=== PATIENT | female | born 1985 | race Caucasian/White ===

== ENCOUNTER 2020-06-14 08:04 | Day surgery (SDC) | payer BC ==
[~2020-06-14 08:04] MED LIST: Lactated Ringers 1,000 ML IV SCH; Lidocaine 1%/Sod Bicarbonate in NS 8.4% 1 ML Syringe IDERM PRN; Sodium Chloride 0.9% 10 ML Syringe FLUSH PRN
--- NOTE | 2020-06-14 08:17 | PCM.PREANE ---
Preanesthetic Assessment - Procedure Proposed Procedure: Right Knee Manipulation under Anesthesia with Right knee steroid injection. - Anesthesia/Transfusion/Family Hx Anesthesia History: Prior Anesthesia Without Reaction Family History of Anesthesia Reaction: No Transfusion History: No Prior Transfusion(s) Intubation History: Unknown - Review of Systems General: No Symptoms Pulmonary: No Symptoms (asthma: last used inhaler greater than 2 months ago/former smoker: 1/2 ppd times 16 years (quit 2012) ETOH:rarely) Cardiovascular: Palpitations (anxiety) Gastrointestinal: No Symptoms Neurological: No Symptoms (polycystic ovarian disease), Headache (migraines related to menstrual cycle.) Other: Reports: Thyroid Problems (hypothyroid), Depression, Anxiety - Physical Assessment NPO Status Date: 06/13/20 NPO Status Time: 21:00 Vital Signs: HR:77 Sat:99% Temp:97.5 Resp:16 B/P:125/81 Height: 1.47 m Weight: 59 kg ASA Class: 2 Mental Status: Alert & Oriented x3 Airway Class: Mallampati = 2 Dentition: Reports: Normal Dentition, Caries Thyro-Mental Finger Breadths: 3 Mouth Opening Finger Breadths: 3 ROM/Head Extension: Full Lungs: Clear to Auscultation, Normal Respiratory Effort Cardiovascular: Regular Rate, Regular Rhythm, No Murmurs - Lab Values: Laboratory Last Values Urine HCG, Qual Negative (NEGATIVE) 06/14/20 07:58 MRSA (PCR) Negative 06/07/20 12:18 All labs reviewed and noted and within acceptable ranges to proceed with scheduled procedure. - Allergies Allergies/Adverse Reactions: Allergies Allergy/AdvReac Type Severity Reaction Status Date / Time acetaminophen [From Percocet] AdvReac Hallucinati Verified 06/11/20 12:30 ons oxycodone HCl [From Percocet] AdvReac Hallucinati Verified 06/11/20 12:30 ons - Anesthesia Plan Pre-Op Medication Ordered: Beta Terry Beta Terry: Propranolol Med Last Dose Date: 06/13/20 Med Last Dose Time: 07:00 - Acknowledgements Anesthesia Type Planned: MAC Pt an Appropriate Candidate for the Planned Anesthesia: Yes Alternatives and Risks of Anesthesia Discussed w Pt/Guardian: Yes Pt/Guardian Understands and Agrees with Anesthesia Plan: Yes PreAnesthesia Questionnaire HEENT History: Reports: None Other HEENT History: wears eyeglasses Cardiovascular History: Reports: None Respiratory History: Reports: Asthma Gastrointestinal History: Reports: None Genitourinary History: Reports: None QA REVIEWER History: Reports: Other (See Below) Other OB/BYN History: spontaneous , polycystic ovaries Musculoskeletal History: Reports: None Neurological History: Reports: Migraines Psychiatric History: Reports: Anxiety, Depression, Other (See Below) Other Psychiatric History: insomnia Endocrine/Metabolic History: Reports: None Hematologic History: Reports: None Immunologic History: Reports: None Oncologic (Cancer) History: Reports: None Dermatologic History: Reports: Other (See Below) Other Dermatologic History: skin rash - Infectious Disease History Infectious Disease History: Reports: None - Past Surgical History Head Surgeries/Procedures: Reports: None HEENT Surgical History: Reports: LASIK, Tonsillectomy Cardiovascular Surgical History: Reports: None Respiratory Surgical History: Reports: None GI Surgical History: Reports: None Female Surgical History: Reports: None Male Surgical History: Reports: None Endocrine Surgical History: Reports: None Neurological Surgical History: Reports: None Musculoskeletal Surgical History: Reports: Other (See Below) Other Musculoskeletal Surgeries/Procedures:: right knee video arthroscopy, right knee hardware removal, right knee surgery x 2, wrist fx x 2 Oncologic Surgical History: Reports: None Dermatological Surgical History: Reports: None - SUBSTANCE USE Tobacco Use Status *Q: Former Tobacco User Days Per Week of Alcohol Use: 1 Number of Drinks Per Day: 2 Total Drinks Per Week: 2 Recreational Drug Use History: No - HOME MEDS Home Medications: Home Meds Albuterol Sulfate [Albuterol Sulfate HFA] 1 - 2 puff INH Q4H PRN 06/11/20 [History] Fish Oil/[place]-3 Fatty Acids [Fish Oil 1,000 MG] 1 gm PO DAILY 06/11/20 [History] Methylphenidate HCl [Methylphenidate ER] 54 mg PO DAILY 06/11/20 [History] Montelukast [Singulair] 10 mg PO DAILY 06/11/20 [History] Multivitamin 1 tab PO DAILY 06/11/20 [History] buPROPion HCL [Wellbutrin Xl] 300 mg PO DAILY 06/11/20 [History] lamoTRIgine [Lamictal] 50 mg PO DAILY 06/11/20 [History] lamoTRIgine [Lamictal] 100 mg PO DAILY 06/11/20 [History] traZODone HCl [Trazodone HCl] 50 - 100 mg PO BEDTIME 06/11/20 [History] Acetaminophen/HYDROcodone [[place] 325-5 MG] 1 - 2 tab PO Q6H PRN #10 tablet 06/14/20 [Rx] Aspirin [Aspirin EC] 325 mg PO DAILY #30 tablet. 06/14/20 [Rx] - CURRENT (IN HOUSE) MEDS Current Meds: Current Medications Lactated Ringer's (Ringers, Lactated) 1,000 mls @ 125 mls/hr IV ASDIRECTED MARCELO Stop: 06/14/20 23:00 Lidocaine/Sodium Bicarbonate (Lidocaine 1%/Sod Bicarbonate In Ns 8.4% 1 Ml Syringe) 0.25 ml IDERM ONETIME PRN PRN Reason: Prior to IV Start Stop: 06/14/20 18:00 Sodium Chloride (Sodium Chloride 0.9% 10 Ml Syringe) 10 ml FLUSH ASDIRECTED PRN PRN Reason: Keep Vein Open Stop: 06/14/20 18:00
[2020-06-14] MEDS ORDERED: Propofol 200 MG/20 ML SDV ONE (09:13)
[2020-06-14] MEDS ORDERED: Ondansetron 4 MG/2 ML SDV ONE (09:13)
[2020-06-14] MEDS ORDERED: Lidocaine 1% 4 ML ONE (09:14)
[2020-06-14] MEDS ORDERED: fentaNYL 100 MCG/2 ML SDV ONE (09:14)
[2020-06-14] MEDS ORDERED: Midazolam 1 MG/ML 2 ML SDV ONE (09:14)
[2020-06-14] MEDS ORDERED: Triamcinolone Acetonide 40 MG/ML 1 ML SDV ONE (09:22)
[2020-06-14] MEDS ORDERED: Bupivacaine 0.25% 10 ML SDV ONE (09:22)
--- NOTE | 2020-06-14 09:51 | PCM48HPAN ---
Post Anesthesia Note - EVALUATION WITHIN 48HRS OF ANESTHETIC Vital Signs in Normal Range: Yes Patient Participated in Evaluation: Yes Respiratory Function Stable: Yes Airway Patent: Yes Cardiovascular Function Stable: Yes Hydration Status Stable: Yes Pain Control Satisfactory: Yes Nausea and Vomiting Control Satisfactory: Yes Mental Status Recovered: Yes Vital Signs: Last Vital Signs Temp 36.4 C 06/14/20 08:51 Pulse 77 06/14/20 08:51 Resp 16 06/14/20 08:51 BP 125/81 06/14/20 08:51 Pulse Ox 99 06/14/20 08:51 - COMMENTS/OBSERVATIONS Free Text/Narrative:: no anesthesia complications noted
[2020-06-14 12:32] VITALS: BP 118/74; PULSE 66
--- NOTE | 2020-06-14 14:05 | PCM.OPNOTE ---
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
--- NOTE | 2020-06-21 07:38 | OR ---
DATE OF OPERATION: 06/14/2020 SURGEON: Jerome Jones MD OPERATION PERFORMED: 1. Right knee manipulation under anesthesia. 2. Right knee intraarticular injection. PREOPERATIVE DIAGNOSIS: Right knee arthrofibrosis and right knee arthritis. POSTOPERATIVE DIAGNOSIS: Right knee arthrofibrosis and right knee arthritis. ANESTHESIA: MAC. ANESTHESIA PROVIDER: Anand Ruggiero CRNA RETINAL ANGIOGRAPHER: Jane London PAC ESTIMATED BLOOD LOSS: Not applicable. COMPLICATIONS: None. CONDITION: Stable. DESCRIPTION OF PROCEDURE: The patient was identified in the preoperative holding area. Proper site was marked and identified by surgeon. The patient was taken back to the operating theater where after adequate anesthesia, a time-out was performed. At this time, pre manipulation motion measured 125 degrees to the right knee compared to 140 on the contralateral side. At this time, manipulation was done and I was able to get the patient to 140 degrees compared to the contralateral side. The patient's knee was otherwise stable to varus and valgus stresses and she had full extension. At this time under sterile technique, 2 mL of 40 mg Kenalog and 4 mL of 0.25% Marcaine were injected in the right knee. The patient tolerated this well and will follow up in clinic 2 weeks after surgery. MMODAL /[id number] FREDI
== END 2020-06-14 11:18 | disposition home or self-care (01) ==
LOC: JD.SDS 08:04
PROVIDERS: ATTEND Orthopaedic Surgery
DX: M17.11 Unilateral primary osteoarthritis, right knee (principal); M24.661 Ankylosis, right knee; Z88.8 Allergy status to other drugs, medicaments and biological substances; J45.909 Unspecified asthma, uncomplicated; Z79.899 Other long term (current) drug therapy; G43.909 Migraine, unspecified, not intractable, without status migrainosus; Z98.890 Other specified postprocedural states; Z87.891 Personal history of nicotine dependence
CPT/HCPCS: 20610; 27570; 81025; 87641; J2250; J2704; J3010; J3301; J3490; J7120; 01380; J2405

== ENCOUNTER 2020-07-26 06:09 | Day surgery (SDC) | payer BC ==
[2020-07-26] MEDS ORDERED: Propofol 200 MG/20 ML SDV ONE (06:43)
[2020-07-26] MEDS ORDERED: Ketorolac 15 MG/ML SDV ONE (06:43)
[2020-07-26] MEDS ORDERED: fentaNYL 100 MCG/2 ML SDV ONE (06:43)
[2020-07-26] MEDS ORDERED: Dexamethasone 4 MG/ML 5 ML MDV ONE (06:43)
[2020-07-26] MEDS ORDERED: Midazolam 1 MG/ML 2 ML SDV ONE ×2 (06:43→06:44)
[2020-07-26] MEDS ORDERED: Lidocaine 1% 4 ML ONE (06:43)
[2020-07-26] MEDS ORDERED: Ketamine 500 mg/10 ML MDV ONE (06:43)
[2020-07-26] MEDS ORDERED: Lactated Ringers 1,000 ML IV SCH (07:00)
[2020-07-26] MEDS ORDERED: Sodium Chloride 0.9% 10 ML Syringe FLUSH PRN (07:00)
[2020-07-26] MEDS ORDERED: Lidocaine 1%/Sod Bicarbonate in NS 8.4% 1 ML Syringe IDERM PRN (07:00)
[2020-07-26] MEDS ORDERED: Dextrose 5% in Water 500 ML ONE (07:22)
[2020-07-26] MEDS ORDERED: ceFAZolin 1 GM Vial ONE (07:26)
[2020-07-26] MEDS ORDERED: EPINEPHrine 1 MG/ML SDV ONE (07:39)
[2020-07-26] MEDS ORDERED: Ropivacaine 0.5% 5 MG/ML 30 ML SDV ONE (07:39)
[2020-07-26] MEDS ORDERED: Ondansetron 4 MG/2 ML SDV IVPUSH PRN (07:50)
[2020-07-26] MEDS ORDERED: fentaNYL 100 MCG/2 ML SDV IVPUSH PRN (07:50)
[2020-07-26] MEDS ORDERED: HYDROmorphone 0.5 MG/0.5 ML Syringe IVPUSH PRN (07:50)
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
[2020-07-26] MEDS: Vancomycin 1 GM SDV ONE ×3 (08:04→08:49)
[2020-07-26] MEDS: Morphine 8 MG, EPINEPHrine 0.3 MG, Cefuroxime 750 MG, Ketorolac 30 MG, Sodium Chloride ... PRN ×15 (08:05→08:50)
[2020-07-26] MEDS ORDERED: Lactated Ringers 1,000 ML ONE (08:32)
--- NOTE | 2020-07-26 09:17 | PCM.POSTAN ---
POST ANESTHESIA ASSESSMENT - MENTAL STATUS Mental Status: Oriented, Other (Drowsy) - VITAL SIGNS Vital Signs: Last Vital Signs Temp 36.5 C 07/26/20 09:11 Pulse 79 07/26/20 06:00 Resp 14 07/26/20 09:11 BP 103/73 07/26/20 09:11 Pulse Ox 96 07/26/20 09:11 - RESPIRATORY Respiratory Status: Respiratory Rate WNL, Airway Patent, O2 Saturation Stable, Supplemental Oxygen - CARDIOVASCULAR CV Status: Pulse Rate WNL, Blood Pressure Stable - GASTROINTESTINAL GI Status: No Symptoms - PAIN Pain Score: 0 - POST OP HYDRATION Hydration Status: Adequate & Stable
[2020-07-26] MEDS ORDERED: Acetaminophen/HYDROcodone 325-5 MG Tab PO PRN (09:29)
[2020-07-26] MEDS ORDERED: Cyclobenzaprine 10 MG Tab PO PRN (09:29)
--- NOTE | 2020-07-26 09:47 | PCM.SN.2 ---
- Free Text/Narrative Note: Right selective femoral nerve block at the adductor canal for post-procedure pain control under US guidance requested by Dr. Jones. Date:07/26/2020 Time Out: 923 Start: 924 End: 927 Chart reviewed. Consent signed. Questions answered. Appropriate monitors applied. Time out performed. Right mid-shaft femur identified with ultrasound, scanning medially of femur, the femoral artery in the adductor canal visualized, and the femoral nerve located laterally to the artery. The skin was prepped lateral to the ultrasound probe with chlorahexadine times two. The 21ga 4 insulated block needle was inserted under direct ultrasound guidance into the adductor canal. 25mL of 0.5% ropivacaine with 1:200,000 epinephrine was injected circumferentially around the nerve with intermittent negative aspiration noted. Patient tolerated the procedure well. Sterile technique noted along with sterile gloves, mask, and sterile probe cover. See picture on progress note and vital signs on nurses notes. Block completed in PACU. Elizabeth Wayne CRNA
--- NOTE | 2020-07-26 11:21 | CR ---
Right knee: AP and crosstable lateral views of the right knee were obtained. Comparison: Prior CT right knee study of 07/14/20. Knee prosthesis is noted. Components are aligned. Prosthetic component is noted within the patella. Soft tissue air is noted. No acute osseous abnormality is otherwise seen. Impression: 1. Satisfactory postop radiographic appearance of recently placed right knee prosthesis. Diagnostic code #2
[2020-07-26] MEDS ORDERED: Ondansetron 4 MG/2 ML SDV IVPUSH ONE (12:15)
--- NOTE | 2020-07-26 14:06 | PCM48HPAN ---
Post Anesthesia Note - EVALUATION WITHIN 48HRS OF ANESTHETIC Vital Signs in Normal Range: Yes Patient Participated in Evaluation: Yes Respiratory Function Stable: Yes Airway Patent: Yes Cardiovascular Function Stable: Yes Hydration Status Stable: Yes Pain Control Satisfactory: Yes Nausea and Vomiting Control Satisfactory: Yes Mental Status Recovered: Yes Vital Signs: Last Vital Signs Temp 36.5 C 07/26/20 10:00 Pulse 55 L 07/26/20 10:30 Resp 16 07/26/20 10:30 BP 115/75 07/26/20 10:30 Pulse Ox 96 07/26/20 10:30
[2020-07-26 15:29] VITALS: BP 106/78; PULSE 73
--- NOTE | 2020-08-08 21:48 | PCM.OPNOTE ---
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
--- NOTE | 2020-08-08 22:35 | OR ---
DATE OF OPERATION: 07/26/2020 SURGEON: Jerome Jones MD OPERATION PERFORMED: Right total knee arthroplasty with [employer]. PREOPERATIVE DIAGNOSIS: Posttraumatic right knee osteoarthrosis. POSTOPERATIVE DIAGNOSIS: Posttraumatic right knee osteoarthrosis. ANESTHESIA: Local MAC with spinal. ANESTHESIA PROVIDER: Sheree Rivas. ELECTRIFICATION ADVISER: Jane London PA-C and Uyen Black LPN. ESTIMATED BLOOD LOSS: 5 mL. COMPLICATIONS: None. CONDITION: Stable. IMPLANTS: 1. [place] size 1 cemented CR femur. 2. [employer]iya size 1 universal tibial baseplate. 3. [place] size 1, 9 mm CS polyethylene insert. 4. [place] size 29 x 9 mm cemented asymmetric patella. DESCRIPTION OF PROCEDURE: The patient was identified in the preoperative holding area. Proper site was marked and identified by the surgeon. The patient was taken back to the operating theater where after adequate anesthesia, the patient's right lower extremity had a nonsterile tourniquet applied, and then sterilely prepped and draped in the usual sterile fashion. OR time-out was performed. The patient received 2 g IV Ancef. The right lower extremity was exsanguinated, and tourniquet was insufflated to 250 mmHg. A standard anterior incision was undertaken, and a medial parapatellar arthrotomy was created. Deep fibers of the MCL were raised. Anterior fat pad was resected. Attention was turned to the patella. The patella measured to 21, resected to a 13 for 29 x 9 mm patella, and the drill holes were drilled. We were going to cement for this patient secondary to the previous plate and screws as well as the patient's small stature. At this time [place] Teto arrays were placed transitionally in the femur with two 4.0 pins as well as distally to the tibial tubercle. Hip center rotation was obtained. Medial and lateral malleoli were marked. At this time, 40 points were obtained off the femur and the tibia for the [employer] robotic plan. The patient then had varus valgus stresses applied in full extension and 90 degrees of flexion. [employer]iya Teto robotic planned for this patient with 19 mm gaps. This was then undertaken. [employer] robotic arm was brought in and a straight saw blade was used for the tibial cut, the anterior femoral cut, the anterior chamfer cut, and the posterior femoral cut. At this time, saw blade was then switched and the distal femoral cut and posterior chamfer cut was completed. All these cuts were found to be adequate. The patient was noted to be a size 1 on the femur and the tibia. Secondary to the patient's small stature, we decided to do a cemented CR femur. At this time, medial and lateral meniscus were resected. Posterior osteophytes were removed. Trial implants were then placed. The patient had full extension and flexion. No signs of liftoff or loosening. Patella was tracking centrally, and no varus-valgus instability. At this time, the [employer] robotic arrays were removed as well as the pins. Cement was mixed on the back table. All cut surfaces were irrigated with pulse lavage irrigation with Ancef after they were stamped and drilled in proper rotation. Once the cement was ready, the size 1 tibial baseplate was cemented in place, size 1 femur was cemented into place, and 9 mm CS polyethylene insert was impacted into place. The patient's knee was brought into full extension. Excess cement was removed and a 29 x 9 mm patella was cemented in place. One liter pulse lavage irrigation with Ancef was irrigated through the knee along with 400 mL IrriSept irritation. Periarticular injection was completed. Topical tranexamic acid and vancomycin powder were applied. A #2 barbed suture was used for closure of the medial parapatellar arthrotomy, and 2-0 Vicryl and Stratafix were used for subcutaneous closure, and Prineo was used for skin closure. The patient had a sterile soft dressing applied and sent to PACU in stable condition. MMODAL /[id number]
== END 2020-07-26 16:14 | disposition home or self-care (01) ==
LOC: JD.SDS 06:09
PROVIDERS: ATTEND Orthopaedic Surgery
DX: M17.31 Unilateral post-traumatic osteoarthritis, right knee (principal); M25.761 Osteophyte, right knee; Z88.8 Allergy status to other drugs, medicaments and biological substances; Z79.899 Other long term (current) drug therapy; Z87.891 Personal history of nicotine dependence; Z98.890 Other specified postprocedural states
CPT/HCPCS: 27447; 73560; 97110; 97116; 97161; 97165; A9270; C1713; C1776; J0171; J0690; J0697; J1100; J1170; J1885; J2250; J2270; J2405; J2704; J2795; J3010; J3370; J7060; J7120; 01402; 64450

== ENCOUNTER 2021-11-09 08:56 | Emergency (ER) | payer BC ==
[2021-11-09 09:10] VITALS: BP 139/63; PULSE 72
[2021-11-09] MEDS ORDERED: Metoclopramide 10 MG/2 ML SDV IVPUSH ONE (09:49)
[2021-11-09] MEDS ORDERED: diphenhydrAMINE 50 MG/ML SDV IVPUSH ONE (09:50)
[2021-11-09] MEDS ORDERED: HYDROmorphone 0.5 MG/0.5 ML Syringe IVPUSH ONE (09:50)
[2021-11-09] MEDS ORDERED: Dextrose 5%-0.9% NaCl 1,000 ML IV SCH (10:00)
[2021-11-09] MEDS ORDERED: Ketorolac 30 MG/ML SDV IVPUSH SCH (10:00)
== END 2021-11-09 11:59 | disposition home or self-care (01) ==
LOC: JD.ED 08:56
DX: G43.909 Migraine, unspecified, not intractable, without status migrainosus (principal); J45.909 Unspecified asthma, uncomplicated; R11.2 Nausea with vomiting, unspecified; Z88.6 Allergy status to analgesic agent; Z88.5 Allergy status to narcotic agent; Z79.899 Other long term (current) drug therapy; Z79.82 Long term (current) use of aspirin
CPT/HCPCS: 96361; 96374; 96375; 99283; J1170; J1200; J1885; J2765; J7042

== ENCOUNTER 2022-10-01 19:27 | Emergency (ER) | payer BC ==
[2022-10-01] MEDS ORDERED: Ketorolac 60 MG/2 ML SDV IM ONE (19:48)
[2022-10-01] MEDS ORDERED: Ondansetron 4 MG Tab.DIS PO ONE (19:49)
[2022-10-01 21:12] VITALS: BP 120/83; PULSE 74
== END 2022-10-01 21:03 | disposition home or self-care (01) ==
LOC: JD.ED 19:27
DX: G43.909 Migraine, unspecified, not intractable, without status migrainosus (principal); J45.909 Unspecified asthma, uncomplicated; Z88.6 Allergy status to analgesic agent; Z79.82 Long term (current) use of aspirin; Z79.899 Other long term (current) drug therapy
CPT/HCPCS: 96372; 99283; A9270; J1885